=== PATIENT | female | born 1975 | race American Indian/Alaskan Native ===

== ENCOUNTER 2018-09-11 01:38 | Emergency (ER) | payer OTHER ==
[2018-09-11] MEDS ORDERED: TYLENOL PO ONE (01:53)
[2018-09-11] MEDS ORDERED: TYLENOL ONE (01:57)
[2018-09-11 02:42] LABS: Hematocrit 39.1 % (30.3-42.9); Hemoglobin 12.9 gm/dl (10.1-14.3); Mean Corpuscular HGB Conc 33 % (30-34); Mean Corpuscular Volume 82 fl (79-97); Red Blood Count 4.78 M/mm3 (3.65-5.03); Red Cell Distribution Width 14.7 % (13.2-15.2)
[2018-09-11 04:16] VITALS: BP 121/72
[2018-09-11 05:15] LABS: Basophils % (Manual) 0 % (0.0-1.8); Eosinophils % (Manual) 0 % (0.0-4.3); Total Cells Counted 100
[2018-09-11 05:17] LABS: Large Platelets Rare; Platelet Count 281 K/mm3 (140-440); Platelet Estimate Consistent w Auto; RBC Morphology Normal
[2018-09-11 05:46] LABS: Bilirubin,Urine NEG (Negative); Blood,Urine MOD (Negative); Color,Urine Yellow (Yellow); Mucus,Urine 2+ /HPF; Urobilinogen,Urine < 2.0 mg/dL (<2.0)
[2018-09-11 05:48] LABS: RBC,Urine > 182.0 /HPF (0.0-6.0)
--- NOTE | 2018-09-11 05:49 | Ultrasound Report ---
PROCEDURE: US OB <= 14 WEEKS FETUS, US OB TRANSVAGINAL TECHNIQUE: Transabdominal and transvaginal grayscale, color Doppler and M-mode first trimester ultra sound HISTORY: vaginal bleeding COMPARISONS: None FINDINGS: A single intrauterine is present in the lower uterine portion of the endometrium without do cumented cardiac activity. [place]-rump length is 5 mm corresponding to estimated gestational age of 6 weeks 2 days and delivery date of 05/05/2019. Slightly irregular oblong gestational sac configuration with small perigestational hemorrhage involving less than 50% of the gestational sac surface area. No free fluid in the pelvis. The cervix appears closed. Heterogeneous uterine myometrium with suggested intramural fibroids measuring up to 5.8 cm in greatest dimension. Right ovarian functional cyst measures up to 1.7 cm. The ovaries measure 3.2 x 1.5 x 3.2 cm on the ri ght and 2.2 x 1.5 x 2.6 cm on the left and are otherwise unremarkable. IMPRESSION: Intrauterine without cardiac activity documented. Estimated gestational age is 6 weeks 2 da ys based on crown-rump length of 5 mm. Close interval clinical and sonographic follow-up is recommend ed as differential diagnosis includes both early viable and demise/failed first trime ster . This document is electronically signed by Juan David Alberto MD., September 11 2018 05:47:34 AM ET
--- NOTE | 2018-09-11 06:37 | Emergency Department Report ---
ED General Adult HPI - General Chief complaint: Abdominal Pain Stated complaint: PREG 10WKS/VAG BLEEDING Time Seen by Provider: 09/11/18 06:22 Source: patient, family Mode of arrival: Wheelchair Limitations: No Limitations - History of Present Illness Initial comments: 42-year-old female who had an ultrasound performed last Friday which showed a 6 week with no cardiac activity. She is 10 weeks by dates. She states that she has had a previous miscarriage. She came last night because she had cramping and throughout wants. She states she could not keep down her medicine. She did not have a substantial amount of bleeding. She states that she may have passed the while in the emergency department. She shows me a cell phone picture of what appears to be a clot in the commode. In any case she does not know what her blood type is. Her ABO Rh testing is delayed. I have called the lab. She has no other complaints at this time and states she is ready for discharge. She has no history of Rh incompatibility -: Gradual Location: pelvis Severity scale (0 -10): 0 Quality: other (cramping) Consistency: intermittent Improves with: none Worsens with: none Associated Symptoms: denies other symptoms, nausea/vomiting - Related Data Previous Rx's Medication Instructions Recorded Last Taken Type HYDROcodone/APAP 5-325 [[place] 1 each PO Q6HR PRN #5 tablet 09/11/18 Unknown Rx 5/325] Ondansetron [Zofran Odt] 4 mg PO Q8HR #5 tab.rapdis 09/11/18 Unknown Rx Allergies Allergy/AdvReac Type Severity Reaction Status Date / Time No Known Allergies Allergy Verified 09/11/18 02:03 ED Review of Systems ROS: Stated complaint: PREG 10WKS/VAG BLEEDING Other details as noted in HPI Constitutional: denies: chills, fever Eyes: denies: eye pain, eye discharge, vision change ENT: denies: ear pain, throat pain Respiratory: denies: cough, shortness of breath, wheezing Cardiovascular: denies: chest pain, palpitations Endocrine: no symptoms reported Gastrointestinal: abdominal pain, nausea, vomiting. denies: diarrhea Genitourinary: as per HPI. denies: urgency, dysuria, discharge Musculoskeletal: denies: back pain, joint swelling, arthralgia Skin: denies: rash, lesions Neurological: denies: headache, weakness, paresthesias Psychiatric: denies: anxiety, depression Hematological/Lymphatic: denies: easy bleeding, easy bruising ED Past Medical Hx - Past Medical History Previous Medical History?: Yes Hx Hypertension: Yes - Surgical History Past Surgical History?: No - Social History Smoking Status: Never Smoker Substance Use Type: Alcohol - Medications Home Medications: Home Medications Medication Instructions Recorded Confirmed Last Taken Type HYDROcodone/APAP 5-325 [[place] 1 each PO Q6HR PRN #5 tablet 09/11/18 Unknown Rx 5/325] Ondansetron [Zofran Odt] 4 mg PO Q8HR #5 tab.rapdis 09/11/18 Unknown Rx ED Physical Exam - General Limitations: No Limitations General appearance: alert, in no apparent distress - Head Head exam: Present: atraumatic, normocephalic - Eye Eye exam: Present: normal appearance. Absent: scleral icterus - ENT ENT exam: Present: mucous membranes moist - Neck Neck exam: Present: normal inspection - Respiratory Respiratory exam: Present: normal lung sounds bilaterally. Absent: respiratory distress - Cardiovascular Cardiovascular Exam: Present: regular rate, normal rhythm. Absent: systolic murmur, diastolic murmur, rubs, gallop - GI/Abdominal GI/Abdominal exam: Present: soft, normal bowel sounds. Absent: distended, tenderness, guarding, rebound, rigid - Extremities Exam Extremities exam: Present: normal inspection - Back Exam Back exam: Present: normal inspection - Neurological Exam Neurological exam: Present: alert, oriented X3, CN II-XII intact. Absent: motor sensory deficit - Psychiatric Psychiatric exam: Present: normal affect, normal mood - Skin Skin exam: Present: warm, dry, intact, normal color. Absent: rash ED Course Vital Signs 09/11/18 09/11/18 09/11/18 01:46 01:56 04:14 Temperature 97.6 F 98.2 F Pulse Rate 63 68 Respiratory 20 18 16 Rate Blood Pressure 120/66 Blood Pressure 121/72 [Left] O2 Sat by Pulse 100 96 Oximetry - Reevaluation(s) Reevaluation #1: Await Rh results and discharge. 09/11/18 06:39 ED Medical Decision Making - Lab Data Result diagrams: 09/11/18 02:22 - Radiology Data Radiology results: report reviewed IMPRESSION: Intrauterine without cardiac activity documented. Estimated gestational age is 6 weeks 2 days based on crown-rump length of 5 mm. Close interval clinical and sonographic follow-up is recommended as differential diagnosis includes both early viable and demise/failed first trimester . This document is electronically signed by Juan David Alberto MD., September 11 2018 05:47:34 AM ET Critical care attestation.: If time is entered above; I have spent that time in minutes in the direct care of this critically ill patient, excluding procedure time. ED Disposition Clinical Impression: Inevitable Disposition: DC- TO HOME OR SELFCARE Is pt being admited?: No Does the pt Need Aspirin: No Condition: Stable Instructions: Abdominal Pain (ED), Spontaneous Miscarriage (ED) Prescriptions: HYDROcodone/APAP 5-325 [[place] 5/325] 1 each PO Q6HR PRN #5 tablet PRN Reason: Pain Ondansetron [Zofran Odt] 4 mg PO Q8HR #5 tab.rapdis Referrals: SUKHDEV HINOJOSA MD [Primary Care Provider] - 3-5 Days LUZ MARIA STEWART MD [Staff Physician] - 3-5 Days Time of Disposition: 06:38
== END 2018-09-11 08:05 | disposition home or self-care (01) ==
LOC: ED 01:38
DX: O03.9 Complete or unspecified spontaneous abortion without complication (principal); O10.911 Unspecified pre-existing hypertension complicating pregnancy, first trimester; Z3A.10 10 weeks gestation of pregnancy
CPT/HCPCS: 36415; 76801; 76817; 81001; 84702; 85007; 85025; 86900; 86901